=== PATIENT | female | born 1995 | race Two or more races ===

== ENCOUNTER 2016-09-18 22:22 | Emergency (ER) | payer OTHER ==
[~2016-09-18] VITALS: Ht 162.6 cm; Wt 63.5 kg
[2016-09-19] VITALS: BP 110/63
== END 2016-09-19 01:32 | disposition home or self-care (01) ==
LOC: ER 22:33
DX: J02.0 Streptococcal pharyngitis (principal); R51 Headache

== ENCOUNTER 2017-08-29 17:54 | Emergency (ER) | payer MEDICAID ==
[~2017-08-29] VITALS: Ht 165.1 cm; Wt 63.5 kg
[2017-08-29 18:15] VITALS: BP 132/84
[2017-08-29] MEDS ORDERED: TETRACAINE HCL 0.5% OPTH(EYE) SOLN 4ML LEFTEYE ONE (20:45)
[2017-08-29] MEDS ORDERED: FLUORESCEIN SOD 1 MG TEST STRIP LEFTEYE ONE (20:45)
== END 2017-08-29 21:36 | disposition home or self-care (01) ==
LOC: ER 17:54
DX: S05.02XA Injury of conjunctiva and corneal abrasion without foreign body, left eye, initial encounter (principal); X58.XXXA Exposure to other specified factors, initial encounter; Y93.89 Activity, other specified; Y92.89 Other specified places as the place of occurrence of the external cause; Y99.8 Other external cause status